=== PATIENT | female | born 1995 | race Caucasian/White ===

== ENCOUNTER 2025-04-05 22:23 | Emergency (ER) | payer OTHER ==
[2025-04-05] MEDS ORDERED: HYDROCODONE/APAP 7.5/325 MG TAB ONE (22:51)
--- NOTE | 2025-04-06 00:37 | EDPHYS ---
Physician Documentation [facility] Name: Evelyn Tucker Age: 29 yrs Sex: Female : 1995 Arrival Date: 04/05/2025 Time: 22:23 Bed IW9 Private MD: ED Physician Jamey Cardona HPI: 04/05 22:49 This 29 yrs old Female presents to ER via Ambulatory with complaints of Hand Injury. kb 22:49 Patient is a 29-year-old female who presents for pain to left elbow and wrist after kb falling from standing position 30 minutes ago. States she was walking her dog, her dog got excited and made her fall down. States she put out her forearm to break her fall. Denies any other injuries or pain.. 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 - Infectious Disease History:: Denies. - Social history:: Smoking status: Reported history of juuling and/or vaping. ROS: 22:48 Constitutional: As per HPI kb Exam: 22:48 Constitutional: This is a well developed, well nourished patient who is awake, alert, kb and in no acute distress. Head/Face: Normocephalic, atraumatic. ENT: Moist Mucous membranes Cardiovascular: Regular rate Respiratory: Respirations even and unlabored. No increased work of breathing. Talking in full sentences Skin: Warm, dry with normal turgor. Normal color. Neuro: Awake and alert, GCS 15, oriented to person, place, time, and situation. 22:48 Musculoskeletal/extremity: Extremities: grossly normal except: noted in the left elbow: pain, swelling, tenderness, noted in the left wrist: decreased ROM, pain, swelling, tenderness, ROM: limited active range of motion due to pain, Circulation is intact in all extremities. Sensation intact. Vital Signs: 22:34 BP 112 / 79; Pulse 123; Resp 16; Temp 98.3; Pulse Ox 100% ; Weight 58.97 kg; Height 5 dd2 ft. 7 in. ; Pain 7/10; 22:34 Body Mass Index 20.36 (58.97 kg, 170.18 cm) dd2 22:34 Pain Scale: Adult dd2 MDM: 22:28 Medical Screening Exam initiated kb 22:49 Differential diagnosis: dislocation, closed fracture, contusion, sprain. Data reviewed: kb vital signs, nurses notes. Historians other than the Patient: Parent: mother. 04/06 00:35 Independent interpretation of the following test(s) in the Emergency Department X-Ray: kb My interpretation is no displaced fracture on xrays. Counseling: I had a detailed discussion with the patient and/or guardian regarding the historical points, exam findings, and any diagnostic results supporting the discharge/admit diagnosis, radiology results, the need for outpatient follow up, a orthopedic surgeon, to return to the emergency department if symptoms worsen or persist or if there are any questions or concerns that arise at home. 04/05 22:32 Order name: Elbow Left 3 View XRAY kb 04/05 22:32 Order name: Forearm Left XRAY kb 04/06 00:33 Order name: Posterior Elbow Splint; Complete Time: 02:16 kb 04/06 00:33 Order name: Sling; Complete Time: 02:16 kb Administered Medications: 04/05 22:56 Drug: Hydrocodone-Acetaminophen PO (7.5 mg-325 mg) 1 tabs PO once Route: PO; br2 04/06 01:00 Follow up: Response: No adverse reaction; Pain is decreased br2 Disposition: 18:42 Co-signature as Attending Physician, Jaemy Cardona MD I agree with the assessment sp4 and plan of care. I reviewed the patient's care provided by the Advanced Practice Provider and agree with the diagnosis and treatment plan. Disposition Summary: 04/06/25 00:36 Discharge Ordered Notes: Location: Home Condition: Stable kb Diagnosis - Nondisplaced fracture of radial head - left kb Followup: kb - With: Emergency Department - When: As needed - Reason: Worsening of condition Followup: kb - With: Private Physician - When: 2 - 3 days - Reason: Recheck today's complaints, Continuance of care, Re-evaluation by your physician Discharge Instructions: - Discharge Summary Sheet kb - Radial Head Fracture, [id number] kb Forms: - Medication Reconciliation Form kb - Antibiotic Education kb - Prescription Opioid Use kb - Patient Portal Instructions kb - Leadership Thank You Letter kb Prescriptions: - Tramadol 50 mg Oral Tablet - take 1 tablet ORAL route every 8 hours as needed; 12 tablet; Refills: 0, kb Product Selection Permitted Signatures: Dispatcher [employer] Ashley Grace, JAMIRC Jamey Michel MD MD sp4 Ana Snider RN RN br2 MICHELLE WEI RN RN dd2
--- NOTE | 2025-04-06 00:37 | ER ---
Nurse's Notes [facility] Name: Evelyn Tucker Age: 29 yrs Sex: Female : 1995 Arrival Date: 04/05/2025 Time: 22:23 Bed IW9 Private MD: Diagnosis: Nondisplaced fracture of radial head - left Presentation: 04/05 22:34 Chief complaint: Patient states: SHE WAS WALKING HER DOG, DOG RAN AND LEASH WAS WRAPPED dd2 AROUND HER LEFT ARM, PULLED HER DOWN AND SHE FELL LANDING ON CONCRETE ON HER LT ARM. Coronavirus screen: At this time, the client does not indicate any symptoms associated with coronavirus-19. Ebola Screen: No symptoms or risks identified at this time. Initial Sepsis Screen: Does the patient meet any 2 criteria? No. Patient's initial sepsis screen is negative. Does the patient have a suspected source of infection? No. Patient's initial sepsis screen is negative. Risk Assessment: Do you want to hurt yourself or someone else? Patient reports no desire to harm self or others. Onset of symptoms was April 05, 2025. 22:34 Method Of Arrival: Ambulatory dd2 22:34 Acuity: KIKE 3 dd2 Triage Assessment: 22:36 General: Appears in no apparent distress. uncomfortable, Behavior is calm, cooperative, dd2 appropriate for age. Pain: Complains of pain in left arm Pain currently is 7 out of 10 on a pain scale. Musculoskeletal: Circulation, motion, and sensation intact. Range of motion: limited in left wrist Tenderness present in left arm Reports pain in left arm. Injury Description: FALL INJURY LT ARM. 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 - Infectious Disease History:: Denies. - Social history:: Smoking status: Reported history of juuling and/or vaping. Screenin:59 [facility] ED Fall Risk Assessment (Adult) History of falling in the last 3 months, br2 including since admission Yes- single mechanical fall (1 pt) Confusion or Disorientation No (0 pts) Intoxicated or Sedated No (0 pts) Impaired Gait No (0 pts) Mobility Assist Device Used No (0 pt) Altered Elimination Yes (1 pt) Score/Fall Risk Level 0 - 2 = Low Risk Oriented to surroundings. Abuse screen: Denies threats or abuse. Denies injuries from another. Nutritional screening: No deficits noted. Tuberculosis screening: No symptoms or risk factors identified. Assessment: 22:59 Reassessment: Patient and/or family updated on plan of care and expected duration. Pain br2 level reassessed. Patient is alert, oriented x 3, equal unlabored respirations, skin warm/dry/pink. General: Appears uncomfortable, Behavior is calm, cooperative. Musculoskeletal: Reports pain in dorsal aspect of left forearm and left wrist. Vital Signs: 22:34 BP 112 / 79; Pulse 123; Resp 16; Temp 98.3; Pulse Ox 100% ; Weight 58.97 kg; Height 5 dd2 ft. 7 in. ; Pain 7/10; 22:34 Body Mass Index 20.36 (58.97 kg, 170.18 cm) dd2 22:34 Pain Scale: Adult dd2 ED Course: 22:26 Patient arrived in ED. im 22:28 Ashley [facility]C [facility] kb 22:28 Jamey Cardona MD is Attending Physician. kb 22:36 Triage completed. dd2 22:36 Arm band placed on right wrist. dd2 22:59 Bed in low position. Call light in reach. Side rails up X 1. Provided Education on: br2 PLAN OF CARE. 23:46 Elbow Left 3 View XRAY In Process Unspecified. EDMS 23:46 Forearm Left XRAY In Process Unspecified. EDMS 04/06 01:00 Orthoglass splint: posterior long arm splint applied to the left arm. Sling \T\ swathe to br2 left arm. 01:17 Patient did not have IV access during this emergency room visit. br2 Administered Medications: 04/05 22:56 Drug: Hydrocodone-Acetaminophen PO (7.5 mg-325 mg) 1 tabs PO once Route: PO; br2 04/06 01:00 Follow up: Response: No adverse reaction; Pain is decreased br2 Medication: 04/05 22:59 VIS not applicable for this client. br2 Outcome: 04/06 00:36 Discharge ordered by . kb 01:17 Discharged to home ambulatory, br2 01:17 Condition: stable 01:17 Discharge instructions given to patient, Instructed on discharge instructions, follow up and referral plans. Demonstrated understanding of instructions, follow-up care, Prescriptions given X , 02:17 Patient left the ED. br2 Signatures: Dispatcher [employer] EDMS Ashley Castañeda, ARGENIS-C ARGENIS-Crista Wall Belinda RN RN br2 MICHELLE WEI RN RN dd2
--- NOTE | 2025-04-06 01:23 | RAD REPORT ---
EXAM: XR Left Elbow Complete, 3 or More Views CLINICAL HISTORY: The patient is 29 years old and is Female; PAIN TECHNIQUE: Frontal, lateral and oblique views of the left elbow. COMPARISON: No relevant prior studies available. FINDINGS: BONES/JOINTS: Anterior and posterior elbow joint effusions are present. A nondisplaced fracture involving the radial head is present. No dislocation. SOFT TISSUES: Unremarkable. IMPRESSION: Nondisplaced radial head fracture. Electronically signed by: Violeta Coombs MD 04/06/2025 12:24 AM CDT Due to temporary technical issues with the [employer] reporting system, reports are being azalia d by the in-house radiologist without review as a courtesy to ensure prompt reporting. The interpreting radiologist is fully responsible for the content of the report. Transcribed Date/Time: 04/06/2025 1:23 AM
--- NOTE | 2025-04-06 01:24 | RAD REPORT ---
EXAM: XR Left Forearm, 2 Views CLINICAL HISTORY: The patient is 29 years old and is Female; PAIN TECHNIQUE: Frontal and lateral views of the left forearm. COMPARISON: No relevant prior studies available. FINDINGS: BONES/JOINTS: A nondisplaced radial head fracture is present. The radial head is aligned with the capitellum on both views. Anterior and posterior elbow joint effusions are present. SOFT TISSUES: Unremarkable. IMPRESSION: Nondisplaced radial head fracture. Electronically signed by: Violeta Coombs MD 04/06/2025 12:28 AM CDT RP Due to temporary technical issues with the [email or web address] reporting system, reports are being azalia d by the in-house radiologist without review as a courtesy to ensure prompt reporting. The interpreting radiologist is fully responsible for the content of the report. Transcribed Date/Time: 04/06/2025 1:23 AM
[2025-04-06 06:52] VITALS: BP 112/79; TEMP 98.3; O2SAT 100
== END 2025-04-06 02:17 | disposition home or self-care (01) ==
LOC: ER 22:23
PROC: 2W3DX1Z Immobilization of Left Lower Arm using Splint (ICD-10-PCS; principal; 2025-04-06)
DX: S52.125A Nondisplaced fracture of head of left radius, initial encounter for closed fracture (principal); W18.30XA Fall on same level, unspecified, initial encounter